=== PATIENT | female | born 1980 | race Hispanic/Latino ===

== ENCOUNTER 2016-08-09 21:21 | Emergency (ER) | payer OTHER ==
[2016-08-09 21:27] VITALS: BP 114/63; PULSE 61; RESP 17; TEMP 98.3; O2SAT 100
--- NOTE | 2016-08-09 21:54 | ED PDOC ---
Lower Extremity Pain/Injury Time Seen by Provider: 08/09/16 21:25 Chief Complaint (Nursing): Lower Extremity Problem/Injury Chief Complaint (Provider): bilateral knee pain History Per: Patient History/Exam Limitations: no limitations Onset/Duration Of Symptoms: Mins (prior to arrival) Current Symptoms Are (Timing): Better Additional Complaint(s): 36 year old female who is currently 32 weeks , presents to the Emergency Department with a complaint of trauma to the knees bilaterally after she tripped and fell coming out of the bathroom prior to arrival. Patient arrived by EMS, accompanied by her and son. Patient did not sustain any head injury or LOC. Patient denies abdominal pain and states she did not injure her abdomen as a result of fall. [employer]: Dr Kel Davis MD in [facility] Past Medical History Reviewed: Historical Data, Nursing Documentation, Vital Signs Vital Signs: Last Vital Signs Temp 98.3 F 08/09/16 21:23 Pulse 61 08/09/16 21:23 Resp 17 08/09/16 21:23 BP 114/63 08/09/16 21:23 Pulse Ox 100 08/09/16 21:23 - Medical History PMH: No Chronic Diseases - Surgical History Surgical History: No Surg Hx - Family History Family History: States: No Known Family Hx - Living Arrangements Living Arrangements: With Family - Social History Current smoker - smoking cessation education provided: No Alcohol: None Drugs: Denies - Allergies Allergies/Adverse Reactions: Allergies Allergy/AdvReac Type Severity Reaction Status Date / Time No Known Allergies Allergy Verified 08/09/16 21:23 Wells Criteria for PE - Wells Criteria for Pulmonary Embolism Clinical Signs and Symptoms of DVT: No P.E is #1 Diagnosis, or Equally Likely: No Heart Rate >100: No Immobilization at least 3 days;Surgery previous 4 weeks: No Previous, objectively diagnosed PE or DVT: No Hemoptysis: No Malignancy w/treatment within 6 months, or palliative: No Total Score: 0 Review of Systems ROS Statement: Except As Marked, All Systems Reviewed And Found Negative Gastrointestinal: Negative for: Abdominal Pain Genitourinary Female: Negative for: Vaginal Bleeding Musculoskeletal: Positive for: Other (bilateral knee pain s/p trip and fall) Neurological: Positive for: Other (denies head injury or LOC) Physical Exam - Reviewed Nursing Documentation Reviewed: Yes Vital Signs Reviewed: Yes - Physical Exam Appears: Positive for: Well, Non-toxic, No Acute Distress Head Exam: Positive for: ATRAUMATIC, NORMAL INSPECTION, NORMOCEPHALIC Skin: Positive for: Normal Color, Warm, Dry Eye Exam: Positive for: Normal appearance Cardiovascular/Chest: Positive for: Regular Rate, Rhythm Respiratory: Positive for: Normal Breath Sounds Gastrointestinal/Abdominal: Positive for: Other (gravid non-tender abdomen) Extremity: Positive for: Other (contusions to knees bilaterally with full rom bilaterally) Neurologic/Psych: Positive for: Alert, Oriented - ECG O2 Sat by Pulse Oximetry: 100 (RA) Pulse Ox Interpretation: Normal Medical Decision Making Medical Decision Making: Time: 21:23 Initial Impression: bilateral knee pain s/p fall Plan: --Ice packs applied to both knees. Patient states upon arrival to ED, knees feel better. Tylenol dose declined. Patient was offered x-rays with shield of abdomen but she declined. Full ROM bilateral knees noted. --Patient was sent up to labor and delivery for monitoring. She is stable for transfer from ED to L&D. Scribe Attestation: Documented by Anita Baires, acting as a scribe for Clementina Saleh PA-C. Provider Scribe Attestation: All medical record entries made by the Scribe were at my direction and personally dictated by me. I have reviewed the chart and agree that the record accurately reflects my personal performance of the history, physical exam, medical decision making, and the department course for this patient. I have also personally directed, reviewed, and agree with the discharge instructions and disposition. Disposition - Clinical Impression Clinical Impression: Knee contusion, Accidental fall - Patient ED Disposition Is Patient to be Admitted: No Counseled Patient/Family Regarding: Diagnosis, Need For Followup - Disposition Referrals: [facility] [Outside] Disposition: Transfer of Care (Patient was discharged from ED and sent to L&D department) Disposition Time: 22:12 Condition: STABLE Additional Instructions: Ice, rest and elevate affected area, Tylenol for pain as needed. Follow-up with primary doctor in 2-3 days. Instructions: Knee Sprain (ED), Contusion in Adults (ED)
--- NOTE | 2016-08-10 05:00 | OBHP ---
Datetime: 08/09/2016 22:44 IP Adm Impression: , intrauterine IP Admit Plan: Observation/Evaluation Admit Comment, IP Provider: 36 y/o @ 32.4 weeks presents after suffering a fall earlier 08/09. Reports she was leaving the bathroom when she tripped over a box and fell forward. Wrists and knees t ook most of the fall and pt denies abdominal impact. Denies LOC. Denies any abdominal pain. All paini s located at wrists and right knee. Denies VB/LOF/CTX and reports good FM throughout the day. No othe r complaints. Denies headaches, visual disturbances, CP/SOB, N/V/D/C, urinary symptoms, numbness/ting ling. PMD: Dr. Davis ([facility]) : compliant with visits, uneventful thus far POBHx: 1 , FT, uncomplicated PMHx: none PSurgHx: none Meds: PNVs ALL: NKDA Social: denies ETOH, tobacco, drug abuse A/P: 36 y/o @ 32.4 weeks IUP, for evaluation s/p fall. - monitoring Odell Power MD PGY1 @ 22:47 The patient was seen with the resident I agree with the note Pelvic Type - PN: Not Done Extremities - PN: Normal Abdomen - PN: Normal Back - PN: Normal Breast - PN: Normal Lungs - PN: Normal Heart - PN: Normal Thyroid - PN: Normal Neurologic - PN: Normal HEENT - PN: Normal General - PN: Normal IP Chief Complaint: Trauma/Fall Genitourinary Exam: Not Done DTRs - PN: Normal
== END 2016-08-10 00:30 | disposition home or self-care (01) ==
LOC: H.EROB2 21:21 → H.EROB 22:25 → H.EROB2 22:31 → H.L&D 22:31 → UNDOADMIN 22:31 → H.EROB 22:36 → H.EROB2 22:42
DX: O26.93 Pregnancy related conditions, unspecified, third trimester (principal); S80.02XA Contusion of left knee, initial encounter; S80.01XA Contusion of right knee, initial encounter; W01.0XXA Fall on same level from slipping, tripping and stumbling without subsequent striking against object, initial encounter; Y93.9 Activity, unspecified